=== PATIENT | male | born 1940 | race Caucasian/White ===

== ENCOUNTER → 2018-04-12 | Outpatient (CLI) | payer OTHER | LOC: FIMAGING 10:31 | PROVIDERS: ATTEND Internal Medicine Hematology & Oncology | DX: Z03.89 Encounter for observation for other suspected diseases and conditions ruled out (principal) ==

== ENCOUNTER → 2018-05-26 | Outpatient (CLI) | payer OTHER | LOC: FIMAGING 14:23 | PROVIDERS: ATTEND Internal Medicine Hematology & Oncology | DX: I82.412 Acute embolism and thrombosis of left femoral vein (principal); I82.432 Acute embolism and thrombosis of left popliteal vein ==

== ENCOUNTER 2018-08-26 12:20 | Inpatient (IN) | payer OTHER ==
[2018-08-26] MEDS ORDERED: cefOXitin SODIUM 2 GM in NS 100 ML IV ONE (13:16)
--- NOTE | 2018-08-26 13:43 | PDANEPAE ---
ANE History of Present Illness cholecystitis ANE Past Medical History - Cardiovascular History Hx Hypertension: No Hx Arrhythmias: No Hx Chest Pain: No Hx Coronary Artery / Peripheral Vascular Disease: No Hx CHF / Valvular Disease: No Hx Palpitations: No - Pulmonary History Hx COPD: No Hx Asthma/Reactive Airway Disease: No Hx Recent Upper Respiratory Infection: No Hx Oxygen in Use at Home: No Hx Sleep Apnea: Yes - Endocrine History Hx Diabetes: No Hypothyroid: No Hyperthyroid: No Obesity: no - Renal History Hx Renal Disorders: No - Liver History Hx Hepatic Disorders: No - GI History GERD: no Hx Gastrointestinal Disorders: No - Other Health History Other Health History: anemia. hx of PE, DVT - Chronic Pain History Chronic Pain: No ANE Review of Systems Review of systems is: negative Review of Systems: ANE Patient History - Allergies Allergies/Adverse Reactions: No Known Allergies Allergy (Verified 01/28/18 17:27) - Home Medications Home medications: home medication list seen and reviewed - NPO status NPO Status: no food or drink >8 hours - Anes Hx Anes Hx: no prior problems - Smoking Hx Smoking Status: Never smoked - Alcohol Use Alcohol Use: None - Family Anes Hx Family Anes Hx: none ANE Physical Exam - Airway Neck exam: FROM Mallampati Score: Class 2 Mouth exam: normal dental/mouth exam - Pulmonary Pulmonary: no respiratory distress, clear to auscultation - Cardiovascular Cardiovascular: regular rate and rhythym, no murmur, rub, or gallop - ASA Status ASA Status: III
[2018-08-26] MEDS ORDERED: LIDOCAINE 1% 2 ML INJ ONE (14:04)
[2018-08-26] MEDS ORDERED: BUPIVACAINE 0.5% 30 ML SDV ONE (14:56)
[2018-08-26] MEDS ORDERED: HEPARIN 1000 UNIT/1 ML MDV ONE (14:56)
[2018-08-26] MEDS ORDERED: ceFAZolin 1 GM/5 ML SYR ONE (14:57)
--- NOTE | 2018-08-26 15:15 | PDHPUP ---
History & Physical Update H&P update statement: This history and physical update is based on an assessment of the patient which was completed after admission or registration (within 24 hours), but prior to the surgery/procedure. H&P update: H&P reviewed & patient examined, no change in patient's condition since H&P completed
[2018-08-26] MEDS ORDERED: fentaNYL 250 MCG/5 ML INJ ONE (15:38)
[2018-08-26] MEDS ORDERED: PROPOFOL 200 MG/20 ML VIAL ONE (15:38)
[2018-08-26] MEDS ORDERED: LIDOCAINE 2% 2 ML INJ ONE ×2 (15:38)
[2018-08-26 15:40] LABS: PLATELET COUNT 309 10^3/uL (150-400)
[2018-08-26] MEDS ORDERED: ONDANSETRON 4 MG/2 ML VIAL ONE (15:54)
[2018-08-26] MEDS ORDERED: DEXAMETHASONE 4 MG/ML VIAL ONE (15:54)
[2018-08-26] MEDS ORDERED: KETOROLAC 30 MG/1 ML SDV ONE (17:12)
[2018-08-26] MEDS ORDERED: GLYCOPYRROLATE 0.2 MG/1 ML VIAL ONE ×2 (17:15)
[2018-08-26] MEDS ORDERED: NEOSTIGMINE METHYLSULFATE 5 MG/5 ML SYR ONE (17:15)
--- NOTE | 2018-08-26 17:18 | POSTANESTH ---
Post Anesthetic Evaluation Cardiovascular Status: Normal, Stable Respiratory Status: Normal, Stable Level of Consciousness/Mental Status: Can Participate in Eval Pain Control: Adequate, Prn Tx Ordered Nausea/Vomiting Control: Adequate, Prn Tx Ordered Complications Possibly Related to Anesthesia: None Noted
[2018-08-26] MEDS ORDERED: ACETAMINOPHEN 325 MG TAB PO PRN (17:52)
[2018-08-26] MEDS ORDERED: ONDANSETRON DISINTEGRATING 4 MG TAB PO PRN (17:54)
--- NOTE | 2018-08-26 18:10 | POSTOPPROG ---
Post Op Note Date of Operation: 08/26/18 Surgeon: Eduardo Treviño Insurance Service Representative: Frank Anesthesiologist: Gely Anesthesia: GET(General Endotracheal) Pre-op Diagnosis: Cholelithiasis Post-op Diagnosis: same Indication: same, RUQ pain Procedure: Lap, conversion to open kerline, RADHA Findings: Extensive adhesions, colon and stomach adhered to abdominal wall Inf/Abcess present in the surg proc area at time of surgery?: No Depth: Organ Space EBL: 50-100 Bowel Protocol: N/A Clean Closure Performed: N/A Specimen(s): Gallbladder
[2018-08-26] MEDS ORDERED: fentaNYL 100 MCG/2 ML INJ ONE (18:19)
[2018-08-26] MEDS ORDERED: HYDROmorphONE/DILAUDID 2 MG/ML INJ ONE (18:23)
[2018-08-26] MEDS: HYDROmorphONE/DILAUDID 1 MG/ML INJ IVP PRN ×2 (18:23→20:32)
[2018-08-26] MEDS: NS 1,000 ML IV SCH (20:28)
[2018-08-26] MEDS: BUPIVACAINE 0.5% 30 ML SDV MISC SCH ×3 (22:25→22:58)
[2018-08-27] MEDS: oxyCODONE IR 5 MG TAB PO PRN ×2 (05:11→06:21)
[2018-08-27] MEDS: ONDANSETRON 4 MG/2 ML VIAL IVP PRN ×2 (07:18→14:18)
[2018-08-27] MEDS: HYDROmorphONE/DILAUDID 1 MG/ML INJ IVP PRN (07:18)
[2018-08-27] MEDS: BUPIVACAINE 0.5% 30 ML SDV MISC SCH ×3 (07:36→13:00)
[2018-08-27] MEDS ORDERED: NALOXONE HCL 0.4 MG/ML INJ IVP PRN (08:04)
[2018-08-27] MEDS ORDERED: HYDROmorphONE/DILAUDID 6 MG/30 ML PCA IV PRN (08:04)
[2018-08-27] MEDS ORDERED: BISACODYL 10 MG SUPP PR PRN (09:37)
[2018-08-27] MEDS ORDERED: MAGNESIUM HYDROXIDE 30 ML UDCUP PO PRN (09:37)
[2018-08-27] MEDS ORDERED: POLYETHYLENE GLYCOL 3350 17 GM PKT PO PRN (09:37)
--- NOTE | 2018-08-27 10:08 | SOAPPROG ---
SOAP Progress Note Assessment/Plan: Assessment/Plan: 77yo M POD#1 s/p lap convert open cholecystectomy with lysis of adhesions for symptomatic cholelithiasis Worsening pain this morning, CONSTRUCTION HELPER initiated improvement. May transition to p.o as diet improves. Continue marcaine catheter Regular diet as tolerated. Passing flatus. Bowel protocol Repeat labs in a.m. Monitor hypotension and tachycardia - likely due to acute pain episode May start Eliquis in the morning Change dressings as needed Seen with Dr. Hylton S: Head worsening pain this morning, now improved with CONSTRUCTION HELPER. Says he is regaining his composed or. No nausea. O: General: Pleasant man in no acute distress, sitting upright in chair, accompanied by Respiratory: No increased work of breathing Abdomen: Softly distended, nontender to palpation. Marcaine catheter in place. Dressings intact with some strikethrough. Skin: Warm and dry. Psych: Mood and affect normal Neuro: Grossly intact 08/27/18 10:09 Objective: Vital Signs Temp Pulse Resp BP Pulse Ox 36.6 C 117 H 20 69/52 L 95 08/27/18 09:19 08/27/18 09:19 08/27/18 09:19 08/27/18 09:19 08/27/18 09:19 Laboratory Results 08/26/18 15:25 08/26/18 15:25 08/26/18 08/27/18 08/28/18 05:59 05:59 05:59 Intake Total 1640 Output Total 5 Balance 1635 ICD10 Worksheet Patient Problems: Problems Problem Status Onset Anemia Acute Pulmonary embolism, bilateral Acute
--- NOTE | 2018-08-27 14:57 | PDMN ---
Medical Necessity Medical necessity: MCG S360 cholecystectomy 3 days: OP; Lap kerline converted to open kerline - status changed to INPT 08/27/18- pt with sig pain req MANAGER FITNESS - > 2 MN ongoing med nec care, further monitoring and tx needed
--- NOTE | 2018-08-27 15:11 | ASMTCMCOM ---
CM Note CM Note Notes: Pt is a 77 y/o man admitted for cholelithiasis. Pt went to surgery w/ Dr. Treviño. Pt will most likely d/c independent when medically stable. No therapies ordered at this time. CM available for changes. Plan: Independent Date Signed: 08/27/2018 03:10 PM Electronically Signed By:CHELSEY Rod
[2018-08-27] MEDS: BUPIVACAINE 0.5% 10 ML SDV SC SCH ×2 (17:07→20:38)
[2018-08-27] MEDS: SENNOSIDES/DOCUSATE SODIUM TAB PO SCH (19:43)
[2018-08-27] MEDS: NS 1,000 ML IV SCH (20:37)
[2018-08-27] MEDS ORDERED: diphenhydrAMINE 25 MG CAP PO PRN (22:15)
[2018-08-28] MEDS: BUPIVACAINE 0.5% 10 ML SDV SC SCH ×8 (04:58→22:33)
[2018-08-28] MEDS: NS 1,000 ML IV SCH (05:08)
[2018-08-28 06:07] LABS: PLATELET COUNT 274 10^3/uL (150-400)
[2018-08-28] MEDS ORDERED: APIXABAN 5 MG TAB PO SCH (09:00)
[2018-08-28] MEDS: SENNOSIDES/DOCUSATE SODIUM TAB PO SCH ×2 (09:39→20:01)
--- NOTE | 2018-08-28 13:23 | SOAPPROG ---
SOAP Progress Note Assessment/Plan: Assessment/Plan: 77yo M POD#2 s/p lap convert open cholecystectomy with lysis of adhesions for symptomatic cholelithiasis Pain controlled c BOOTH CASHIER. May transition to p.o as diet improves. Continue marcaine catheter Regular diet as tolerated. Acute on chronic anemia - s/p 2u PRBC this am. Recheck labs in am. Seen with Dr. Hylton S: Feeling well this am. Tolerating diet. Pain well controlled, especially compared to yesterday O: General: Pleasant man in no acute distress, sitting upright in chair, accompanied by Respiratory: No increased work of breathing Abdomen: +BS. Softly distended, nontender to palpation. Marcaine catheter in place. Incision CDI Skin: Warm and dry. Psych: Mood and affect normal Neuro: Grossly intact Objective: Vital Signs Temp Pulse Resp BP Pulse Ox 36.7 C 72 16 107/55 L 91 L 08/28/18 11:50 08/28/18 11:50 08/28/18 11:50 08/28/18 11:50 08/28/18 11:50 Laboratory Results 08/28/18 04:50 08/28/18 05:00 08/27/18 08/28/18 08/29/18 05:59 05:59 05:59 Intake Total 1640 2800 Output Total 5 1300 Balance 1635 1500 ICD10 Worksheet Patient Problems: Problems Problem Status Onset Anemia Acute Pulmonary embolism, bilateral Acute
[2018-08-29] MEDS: BUPIVACAINE 0.5% 10 ML SDV SC SCH ×3 (00:47→06:23)
[2018-08-29 07:38] VITALS: BP 142/71
--- NOTE | 2018-08-29 08:59 | ASDISCHSUM ---
Discharge Information Plan Status:Home with No Needs Medically Cleared to Leave:08/29/2018 Discharge Date:08/29/2018 CM D/C Disposition:Home, Routine, Self-Care ADT D/C Disposition:Home, Routine, Self-Care Projected Discharge Date:08/29/2018 Transportation at D/C:Family Discharge Delay Reason: Follow-Up Date:08/29/2018 Discharge Slot: Final Diagnosis: Placement Information Patient Contact Information Contact Name:V[place] Relationship: Address:[address] Work Phone: City:[place] [facility] Phone: State/Zip Code:[place] [address] Email: Financial Information Financial Class:Medicare Advantage Plans Primary Plan Desc:SHAHIDA HAYWOOD PPO MEDICARE Primary Plan Number:[id number] Secondary Plan Desc: Secondary Plan Number: Assessment Information [facility] CM Progress Note CM Note CM Note Notes: Pt is a 77 y/o man admitted for cholelithiasis. Pt went to surgery w/ Dr. Treviño. Pt will most likely d/c independent when medically stable. No therapies ordered at this time. CM available for changes. Plan: Independent Date Signed: 08/27/2018 03:10 PM Electronically Signed By:CHELSEY Rod LACE LACE Length of stay for Answers: 1 day current admission Acuity / Level of Answers: Yes Care: Did the patient have an inpatient admission? Comorbidities - select Answers: Other Notes: Hx of PE/DVT all that apply # of Emergency department Answers: 0 visits in the last 6 months Score: 5 Date Signed: 08/29/2018 08:57 AM Electronically Signed By:Yaima Aly RN Case Management Discharge Plan Note Case Management Discharge Discharge Order Complete? Answers: Yes Patient to Obtain Answers: via Family Medications Transportation Arranged Answers: Family/Friends Discharge Comments Notes: 08/29/18 Case Management Note There are no identified case management d/c needs. Pt to discharge home independent with and follow up as directed. Date Signed: 08/29/2018 08:58 AM Electronically Signed By:Yaima Aly RN Intervention Information
== END 2018-08-29 09:58 | disposition home or self-care (01) | DRG 416 ==
LOC: FSGY 12:20 → F3E 17:43 → F1N 19:53 → OBSVTOIN 08-27 14:50
PROVIDERS: ADMIT Surgery; ATTEND Surgery
PROC: 0FT40ZZ Resection of Gallbladder, Open Approach (ICD-10-PCS; principal; 2018-08-26 14:30)
PROC: 30233N1 Transfusion of Nonautologous Red Blood Cells into Peripheral Vein, Percutaneous Approach (ICD-10-PCS; 2018-08-28)
DX: K80.10 Calculus of gallbladder with chronic cholecystitis without obstruction (principal); Z53.31 Laparoscopic surgical procedure converted to open procedure; G47.30 Sleep apnea, unspecified; D64.9 Anemia, unspecified; Z79.01 Long term (current) use of anticoagulants; Z86.711 Personal history of pulmonary embolism; Z86.718 Personal history of other venous thrombosis and embolism
CPT/HCPCS: G0378; J0694; J1100; J1170; J1885; J2405; J2704; J2710; J3010; P9016